=== PATIENT | female | born 1995 | race Caucasian/White ===

== ENCOUNTER 2016-05-01 20:53 | Emergency (ER) | payer BC ==
[2016-05-01 21:10] VITALS: RESP 20
[2016-05-01] MEDS ORDERED: IBUPROFEN 200 MG TAB PO ONE (21:21)
[2016-05-01] MEDS ORDERED: ONDANSETRON DISINTEGRATING 4 MG TAB ONE (21:21)
[2016-05-01] MEDS ORDERED: ONDANSETRON DISINTEGRATING 4 MG TAB PO ONE (21:25)
[2016-05-01] MEDS ORDERED: IBUPROFEN 600 MG TAB PO ONE (21:27)
--- NOTE | 2016-05-01 21:35 | EDPHY ---
H & P Stated Complaint: N/V/D/fever, sore throat, body aches since Monday04/26/16 - Personal History LMP (Females 10-55): Over 28 Days Ago Current Tetanus Diphtheria and Acellular Pertussis (TDAP): Yes - Medical/Surgical History Hx Asthma: No Hx Chronic Respiratory Disease: No Hx Diabetes: No Hx Cardiac Disease: No Hx Renal Disease: No Hx Cirrhosis: No Hx Alcoholism: No Hx HIV/AIDS: No Hx Splenectomy or Spleen Trauma: No Other PMH: hymenectomy - Social History Smoking Status: Never smoked Time Seen by Provider: 05/01/16 21:34 Constitutional: Initial Vital Signs Temperature (C) 38.2 C 05/01/16 21:07 Heart Rate 110 H 05/01/16 21:07 Respiratory Rate 20 05/01/16 21:07 Blood Pressure 115/84 H 05/01/16 21:07 O2 Sat (%) 97 05/01/16 21:07 O2 Delivery Mode Room Air Allergies/Adverse Reactions: No Known Allergies Allergy (Unverified 05/01/16 21:04) Home Medications: Medication Instructions Recorded Adderall 10 MG (*) 05/01/16 Ondansetron Odt [Zofran Odt 4 mg 4 mg PO Q4PRN PRN #10 tab 05/01/16 (*)] Medical Decision Making ED Course/Re-evaluation: CHIEF COMPLAINT: Myalgias, sore throat, chills HISTORY OF PRESENT ILLNESS: The patient is a 20 y/o female arriving with her friends complaining of sore throat, myalgias, and chills for the last 5 days. She came in today because "this is the longest I've ever been sick." She complains of associated postnasal drip that makes it difficult to sleep. She was seen at urgent care on where she had a negative flu and strep swab. They discharged her with Codeine, which she has been unable to tolerate. She is now taking Tylenol, but reports she has been vomiting it all up. No pertinent medical history. REVIEW OF SYSTEMS: A 10 point review of systems was performed and is negative with the exception of the elements mentioned in the history of present illness. PHYSICAL EXAM: HR, BP, O2 Sat, RR. Temp noted General Appearance: Alert, well hydrated, appropriate, and non-toxic appearing. Head: Atraumatic without scalp tenderness or obvious injury Eyes: Pupils equal, round, reactive to light and accommodation, EOMI, no trauma , no injection. Ears: Clear bilaterally, no perforation, normal landmarks Nose: Atraumatic, no rhinorrhea, clear. Throat: Pharyngeal erythema, no exudates, no lesions, normal tonsils, mucus membranes moist. Neck: Supple, 2+ carotid upstroke, nontender, no lymphadenopathy. Respiratory: No retractions, no distress, no wheezes, and no accessory muscle use. Lungs are clear to auscultation bilaterally. Cardiovascular: Regular rate and rhythm, no murmurs, rubs, or gallops. Bilateral carotid, radial, dorsalis pedis, and posterior tibial pulses intact. Good capillary refill all extremities. Gastrointestinal: Abdomen is soft, nontender, non-distended, no masses, no rebound, no guarding, no peritoneal signs. Musculoskeletal: Normal active ROM of all extremities, atraumatic. Neurological: Alert, appropriate, and interactive. The patient has normal DTRs and non-focal cranial nerves, motor, sensory, and cerebellar exam. Skin: No rashes, good turgor, no nodules on palpation. Past medical history: Adderall Past surgical history: Denies Family history: Noncontributory Social history: Friends at bedside DIFFERENTIAL DIAGNOSIS: The differential diagnosis for the patient's myalgias , chills, and sore throat included but was not limited to flu, strep, pneumonia , urinary tract infection, viral syndrome, meningitis, and sepsis. MEDICAL DECISION MAKING: This is a healthy 20 y/o female presenting with myalgias, sore throat, and chills for the past few days. Her exam is unremarkable. Plan for IV, flu swab, and symptom management. 30mg IV Toradol, 4mg IV Zofran, and 2L IV NS administered. 2230: Patient signed out to Dr. Jimenez at shift change pending flu swab results and remaining IV fluid. (Kali Arthur) I took over care of this patient at 10:[address] Kali Arthur. This patient presented to the emergency department with complaint of influenza like symptoms including chills, myalgias and arthralgias, sore throat. She has received Zofran as well as Toradol and IV fluids. We are waiting result on her flu swab. Plan; finish IV fluids and discharged home with supportive care instructions. 11:00 p.m., patient re-evaluated. Influenza-negative. Results of influenza assay discussed with her. Resting comfortably at this time. She has had 2 L of IV normal saline. She is now eating saltines and drinking some water. She states that she feels better. She feels comfortable going home and I feel she is safe for discharge. She will be prescribed Vicodin to use as needed at low dose for myalgias and arthralgias. She will also be prescribed Zofran and I have discussed supportive care and hydration with her. Follow-up and return to emergency department precautions reviewed. All of her questions were answered. She was discharged in good condition. (Gene Jimenez) - Data Points Laboratory Results: 05/01/16 22:10 Influenza Typ A,B (DFA) NEGATIVE FOR FLU (NEGATIVE) Medications Given: Discontinued Medications Sodium Chloride (Ns) 1,000 mls @ 0 mls/hr IV ONCE ONE PRN Reason: Wide Open Stop: 05/01/16 21:52 Last Admin: 05/01/16 22:00 Dose: 1,000 mls Sodium Chloride (Ns) 1,000 mls @ 0 mls/hr IV ONCE ONE PRN Reason: Wide Open Stop: 05/01/16 21:52 Last Admin: 05/01/16 22:00 Dose: 1,000 mls Ibuprofen (Motrin) 600 mg PO EDNOW ONE Stop: 05/01/16 21:28 Last Admin: 05/01/16 21:40 Dose: 600 mg Ketorolac Tromethamine (Toradol) 30 mg IVP EDNOW ONE Stop: 05/01/16 21:52 Last Admin: 05/01/16 22:02 Dose: 30 mg Ondansetron HCl (Zofran Odt) 4 mg PO EDNOW ONE Stop: 05/01/16 21:26 Last Admin: 05/01/16 21:25 Dose: 4 mg Ondansetron HCl (Zofran) 4 mg IVP EDNOW ONE Stop: 05/01/16 21:52 Last Admin: 05/01/16 22:00 Dose: 4 mg Departure - Departure Disposition: Home, Routine, Self-Care Clinical Impression: Influenza URI (upper respiratory infection) Qualifiers: URI type: unspecified viral URI Qualifier Code: (J06.9) Acute upper respiratory infection, unspecified Instructions: Upper Respiratory Infection (ED) Additional Instructions: 1. Use 600mg ibuprofen every 6-8 hours for pain and fever for the next 2-3 days. 2. Take Vicodin as prescribed when needed for pain. 3. Use Zofran as prescribed when needed for nausea or vomiting. 4. Follow up with your primary care provider for symptoms not improved over the next week. 5. Practice good hand hygiene and limit contact with others as you are likely contagious while symptomatic. [place]/Percocet dosin-2 every 4-6 hours for myalgias and arthralgias. Take only as needed. Use lower dose. Do not drive on this medication. Referrals: OUT OF STATE,. [Primary Care Provider] - As per Instructions [facility] [Outside] - As per Instructions Prescriptions: Ondansetron Odt [Zofran Odt 4 mg (*)] 4 mg PO Q4PRN PRN #10 tab PRN Reason: For Nausea & Vomiting Report Scribed for: Kali Arthur Report Scribed by: Asuncion Wilks Date of Report: 05/01/16 Time of Report: 21:57
[2016-05-01] MEDS ORDERED: ONDANSETRON 4 MG/2 ML VIAL IVP ONE (21:51)
[2016-05-01] MEDS ORDERED: NS 1,000 ML IV ONE ×2 (21:51)
[2016-05-01] MEDS ORDERED: KETOROLAC 30 MG/1 ML SDV IVP ONE (21:51)
[2016-05-01] MEDS ORDERED: HYDROCOD/APAP 5/325 PREPACK#6 BTL TAKEHOME ONE (23:01)
[2016-05-01] MEDS ORDERED: ONDANSETRON 4MG PREPACK#2 BTL TAKEHOME ONE (23:01)
[2016-05-01 23:22] VITALS: BP 114/66; PULSE 82; TEMP 98.1; O2SAT 96
== END 2016-05-01 23:21 | disposition home or self-care (01) ==
DX: J11.1 Influenza due to unidentified influenza virus with other respiratory manifestations (principal)
CPT/HCPCS: 96374; J1885; J2405